=== PATIENT | male | born 1935 | race Caucasian/White ===

== ENCOUNTER 2023-12-22 23:01 | Emergency (ER) | payer MEDICARE, OTHER ==
[~2023-12-22] VITALS: Ht 182.9 cm; Wt 82.3 kg
[2023-12-22 23:43] VITALS: BP 170/84; PULSE 60; RESP 16; O2SAT 98
[2023-12-23] MEDS ORDERED: bacitracin 15gm ointment TP ONE (01:48)
[2023-12-23] MEDS: TETanus/Pertussis (Acell)/Diphther VAC/PF (Tdap-Adult) 0.5ml syringe IMVAC ONE (01:52)
[2023-12-23] MEDS: bacitracin 15gm ointment TP SCH (01:53)
[2023-12-23 01:58] VITALS: TEMP 97.9
== END 2023-12-23 01:59 | disposition home or self-care (01) ==
LOC: ER 23:01
DX: S80.212A Abrasion, left knee, initial encounter (principal); X58.XXXA Exposure to other specified factors, initial encounter; Y93.89 Activity, other specified; Y92.89 Other specified places as the place of occurrence of the external cause; Y99.8 Other external cause status
CPT/HCPCS: 90471; 90715; 99283

== ENCOUNTER 2025-05-19 09:39 | Outpatient (CLI) | payer MEDICARE, OTHER ==
--- NOTE | 2025-05-19 19:42 | VASCULAR REPORT ---
RIGHT LOWER EXTREMITY VENOUS DUPLEX REASON FOR EXAMINATION: Right lower extremity pain and edema. COMPARISON: None TECHNIQUE: Using real-time freeze-frame technique with a high-frequency transducer, multiple longitudinal and transverse sections were obtained. Simultaneous color flow and spectral Doppler imaging was performed. FINDINGS: There is good visualization of the deep venous system with no intraluminal filling defects identified. Normal venous compressibility is seen and there is flow augmentation. Color flow Doppler imaging of the deep veins is unremarkable. There is echogenic, occlusive thrombus within a tortuous branch off of the small saphenous vein in the calf corresponding to an area of palpable cord. The main division of the small saphenous vein appears compressible and free of intraluminal thrombus. The greater saphenous vein is also compressible th roughout its visualized length and free of intraluminal thrombus. IMPRESSION: NO EVIDENCE OF DEEP VENOUS THROMBOSIS. 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
== END 2025-05-19 23:59 | disposition home or self-care (01) ==
LOC: VAS 09:39
PROVIDERS: ATTEND Internal Medicine
DX: I82.811 Embolism and thrombosis of superficial veins of right lower extremity (principal); M79.661 Pain in right lower leg; R60.0 Localized edema
CPT/HCPCS: 93971